=== PATIENT | female | born 1940 | race Caucasian/White ===

== ENCOUNTER 2021-04-07 16:22 | Emergency (ER) | payer OTHER ==
[2021-04-07] MEDS ORDERED: PERCOCET 5/325 T1 EA PO (20:14)
[2021-04-07] MEDS ORDERED: AUGMENTIN 875-1 EACH PO (20:23)
== END 2021-04-07 21:00 | disposition home or self-care (01) ==
LOC: ER1 16:22
DX: S02.40FA Zygomatic fracture, left side, initial encounter for closed fracture (principal); S42.202A Unspecified fracture of upper end of left humerus, initial encounter for closed fracture; I10 Essential (primary) hypertension; I25.10 Atherosclerotic heart disease of native coronary artery without angina pectoris; J44.9 Chronic obstructive pulmonary disease, unspecified; Z88.8 Allergy status to other drugs, medicaments and biological substances; Z23 Encounter for immunization; W19.XXXA Unspecified fall, initial encounter; Y92.009 Unspecified place in unspecified non-institutional (private) residence as the place of occurrence of the external cause
CPT/HCPCS: 70450; 70486; 71045; 72125; 73030; 73060; 73090; 90471; 90715; 96374; 96375; 99284; J2270; J2405

== ENCOUNTER → 2022-01-11 | Outpatient (CLI) | payer OTHER ==
[~2022-01-11] MED LIST: AMLODIPINE BESYL5 MG PO; AUGMENTIN 875-1 EACH PO; BUSPIRONE HCL5 MG PO; DOXYCYCLINE HY100 M2 PO; ESCITALOPRAM OX10 MG PO; FUROSEMIDE20 MG PO; HYDRALAZINE HCL25 MG PO; HYDROCHLOROTH12.5 MG PO; IPRAT-ALBUT 0.5-3 ML NEB; LEVOTHYROXINE100 MCG PO; LISINOPRIL20 MG PO; LOPRESSOR 25 MG25 MG PO; LOVASTATIN20 MG PO; MEDROL DOSEPAK 24 MG PO; OMEPRAZOLE20 MG PO; OMNICEF 300 MG300 MG PO; OXYBUTYNIN CHLOR5 MG PO; PERCOCET 5/325 T1 EA PO; PULMICORT0.5 MG/2 M INH
== END ==
LOC: ECHO 12-25 10:30
DX: R06.02 Shortness of breath (principal); I08.3 Combined rheumatic disorders of mitral, aortic and tricuspid valves
CPT/HCPCS: ECHO; 93306